=== PATIENT | female | born 1985 | race Hispanic/Latino ===

== ENCOUNTER 2018-03-07 19:25 | Emergency (ER) | payer SELFPAY ==
[~2018-03-07] VITALS: Ht 149.9 cm; Wt 63.5 kg
[~2018-03-07 19:25] MED LIST: [UNRECOGNIZED DRUG - REMARK] PO
[2018-03-07] MEDS ORDERED: ASPIRIN 325 MG TAB PO ONE (20:00)
--- NOTE | 2018-03-07 20:45 | Diagnostic Imaging Report ---
CXR 2 VIEW - HOPD, Technique: CXR 2 VIEW - HOPD Comparison: None Clinical history: Chest pressure DISCUSSION: Normal appearance of the heart, mediastinum, lungs and pleural spaces. IMPRESSION: No acute abnormality Signed by: Dr Rita Solis MD on 03/07/2018 8:41 PM
[2018-03-07 20:55] VITALS: BP 123/81
== END 2018-03-07 21:00 | disposition home or self-care (01) ==
LOC: FSED 19:25
DX: R07.89 Other chest pain (principal); R31.29 Other microscopic hematuria; R03.0 Elevated blood-pressure reading, without diagnosis of hypertension
CPT/HCPCS: 71046; 80053; 80307; 81003; 81025; 82553; 83880; 84484; 85025; 99284

== ENCOUNTER 2018-12-04 19:06 | Emergency (ER) | payer OTHER ==
[~2018-12-04] VITALS: Ht 149.9 cm; Wt 63.5 kg
--- OUTSIDE RECORDS SUMMARY | 2018-12-04 19:10 | XMS REPORT ---
Author [facility] Address Unknown Phone Unavailable Care Team Providers Care Electronic Prepress Operator Name Role Phone Anna KRUGER Unavailable Unavailable Problems This patient has no known problems. Allergies, Adverse Reactions, Alerts This patient has no known allergies or adverse reactions. Medications This patient has no known medications. Results Test Description Test Time Test Comments Text Results Atomic Results Result Comments CXR 2 VIEW - HOPD 2018-03-07 20:36:00 [place] [address] Patient Name: JULEE XAVIER MR #: [id number] : 1985 Age/Sex: 33/F Req #: [id number] Adm Physician: Ordered by: JOANNA KRUGER MD Report #: [id number] Location: [facility] Room/Bed: Procedure: [id number] HOPD/CXR 2 VIEW - HOPD Exam Date: 03/07/18 Exam Time: 2024 REPORT STATUS: Signed CXR 2 VIEW - HOPD, Technique: CXR 2 VIEW - HOPD Comparison: None Clinical history: Chest pressure DISCUSSION: Normal appearance of the heart, mediastinum, lungs and pleural spaces. IMPRESSION: No acute abnormality Signed by: Dr Aniket Solis MD on 03/07/2018 8:41 PM Dictated By: ANIKET SOLIS MD 40 Transcribed By: ALMA on 03/07/182040 COPY TO: JOANNA KRUGER MD
[2018-12-04] MEDS ORDERED: ONDANSETRON HCL INJ 2MG/ML 2ML 2 MG/ML VIAL IV ONE (19:35)
[2018-12-04] MEDS ORDERED: SODIUM CHLORIDE 0.9% 1000ML 1,000 ML IV ONE (19:45)
[2018-12-04 20:00] LABS: BASOPHILS % 0.4 % (0.0-1.0); EOSINOPHILS # (AUTO) 0.1 (0.0-0.4); EOSINOPHILS % 0.7 % (0.0-6.0); HEMATOCRIT 36.4 % (34.2-44.1); HEMOGLOBIN 12.1 g/dL (12.0-16.0); LYMPHOCYTES # (AUTO) 3.5 (1.0-3.2); LYMPHOCYTES % 38.5 % (18.0-39.1); MEAN CORPUSCULAR HEMOGLOBIN 28.8 pg (28-32); MEAN CORPUSCULAR HGB CONC 33.2 g/dL (31-35); MEAN CORPUSCULAR VOLUME 86.7 fL (81-99); MONOCYTES # (AUTO) 0.5 (0.2-0.8); MONOCYTES % 4.9 % (4.4-11.3); NEUTROPHILS # (AUTO) 5.1 (2.1-6.9); NEUTROPHILS % 55.2 % (38.7-80.0); PLATELET COUNT 338 x10e3/uL (140-360); RED CELL DISTRIBUTION WIDTH 13.1 % (11.7-14.4)
[2018-12-04 20:04] LABS: BILIRUBIN,URINE NEGATIVE (NEGATIVE); CLARITY,URINE SL CLOUDY (CLEAR); COLOR,URINE YELLOW (YELLOW); KETONES,URINE 1+ (NEGATIVE); LEUKOCYTE ESTERASE ,URINE NEGATIVE (NEGATIVE); NITRITE,URINE NEGATIVE (NEGATIVE); PREGNANCY TEST, URINE NEGATIVE (NEGATIVE); PROTEIN,URINE DIPSTICK NEGATIVE (NEGATIVE); URINE UROBILINOGEN 0.2 mg/dL (0.2 - 1)
[2018-12-04 20:14] LABS: ANION GAP 10.8 mmol/L (8-16); BLOOD UREA NITROGEN 17 mg/dL (7-26); BUN/CREATININE RATIO 22 (6-25); CARBON DIOXIDE 24 mmol/L (22-29); CHLORIDE 105 mmol/L (98-107); CREATININE, SERUM 0.79 mg/dL (0.57-1.11); EST GLOMERULAR FILTRATION RATE > 60 ML/MIN (60-); GLUCOSE 99 mg/dL (74-118); POTASSIUM 3.8 mmol/L (3.5-5.1); SODIUM 136 mmol/L (136-145)
[2018-12-04 20:15] LABS: EPITHELIAL CELLS,URINE RARE /LPF; RBC,URINE 0-5 /HPF (0-5)
== END 2018-12-04 20:39 | disposition home or self-care (01) ==
LOC: ER 19:06
DX: K62.5 Hemorrhage of anus and rectum (principal); K64.8 Other hemorrhoids; R31.29 Other microscopic hematuria
CPT/HCPCS: 36415; 80048; 81001; 81025; 85025; 99283; J2405; J7030